=== PATIENT | male | born 1965 | race Caucasian/White ===

== ENCOUNTER 2017-11-12 09:04 | Emergency (ER) | payer OTHER, MEDICARE ==
[2017-11-12] MEDS ORDERED: Sodium Chloride 0.9% 1000 ML 1,000 ML IV SCH (09:15)
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
[2017-11-12 09:49] LABS: INR 1.39 (0.8-3.0)
[2017-11-12 09:51] LABS: BASOPHIL % 0.7 % (0.0-0.4); Basophil (Absolute #) 0.07 (0-0.4); Eosinophil % 2.6 % (0.00-5.0); Eosinophil (Absolute #) 0.24 (0-0.5); Granulocyte Absolute (ANC) 4.34 (1.4-6.9); Granulocytes % 46.5 % (36.0-66.0); Hematocrit 46.2 % (42-50); Hemoglobin 15.8 gm/dl (12.5-18.0); Lymphocyte (Absolute #) 3.72 (1.0-4.6); Lymphocytes % 39.8 % (24.0-44.0); Mean Cell Volume 86.4 fl (78-100); Mean Corpuscular Hemoglobin 29.5 pg (26-32); Mean Corpuscular Hgb Concent. 34.2 g/dl (32-36); Mean Platelet Volume 9.7 fl (6-9.5); Monocyte (Absolute #) 0.97 (0.0-1.3); Monocytes % 10.4 % (0.0-12.0); Platelet Count 257 K/mm3 (150-450); Red Blood Count 5.35 M/mm3 (4.1-5.6); Red Cell Distribution Width 13.8 % (11.5-14.0); White Blood Count 9.3 K/mm3 (4.0-10.5)
[2017-11-12 09:52] LABS: PTT 31.2 SECONDS (24.1-36.1)
[2017-11-12 09:54] LABS: ALBUMIN 4.7 g/dL (3.5-5.0); ALKALINE PHOSPHATASE 95 U/L (38-126); ANION GAP 14.9 MEQ/L (5-15); BLOOD UREA NITROGEN 11 mg/dL (9-20); CHLORIDE 101 mmol/L (98-107); Calcium 9.7 mg/dL (8.4-10.2); Carbon Dioxide 29 mmol/L (22-30); Glucose 70 mg/dL (74-106); Potassium 4.1 mmol/L (3.5-5.1); SGOT/AST 27 U/L (17-59); SGPT/ALT 34 U/L (0-50); SODIUM 141 mmol/L (137-145); Total Protein 7.3 g/dL (6.3-8.2)
[2017-11-12 10:59] VITALS: BP 123/82
[2017-11-12 11:00] VITALS: PULSE 62
[2017-11-12 11:01] VITALS: O2SAT 99
== END 2017-11-12 11:52 | disposition short-term general hospital (02) ==
LOC: ED 09:04
DX: T82.9XXA Unspecified complication of cardiac and vascular prosthetic device, implant and graft, initial encounter (principal); R04.0 Epistaxis; M79.602 Pain in left arm; Z79.01 Long term (current) use of anticoagulants; Z86.711 Personal history of pulmonary embolism
CPT/HCPCS: 36000; 36415; 71045; 80053; 84484; 85025; 85610; 85730; 93005; 93041; 96360; 96361; 99285

== ENCOUNTER 2017-11-25 04:41 | Emergency (ER) | payer OTHER, MEDICARE ==
[2017-11-25] MEDS ORDERED: BABY ASPIRIN 81 MG CHEW PO ONE (04:54)
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
[2017-11-25 05:04] LABS: BASOPHIL % 0.5 % (0.0-0.4); Basophil (Absolute #) 0.06 (0-0.4); Eosinophil % 2.5 % (0.00-5.0); Eosinophil (Absolute #) 0.27 (0-0.5); Granulocyte Absolute (ANC) 6.25 (1.4-6.9); Granulocytes % 57.1 % (36.0-66.0); Hematocrit 46.1 % (42-50); Hemoglobin 16.3 gm/dl (12.5-18.0); Lymphocyte (Absolute #) 3.48 (1.0-4.6); Lymphocytes % 31.8 % (24.0-44.0); Mean Cell Volume 84.7 fl (78-100); Mean Corpuscular Hgb Concent. 35.4 g/dl (32-36); Monocyte (Absolute #) 0.89 (0.0-1.3); Monocytes % 8.1 % (0.0-12.0); Platelet Count 302 K/mm3 (150-450); Red Blood Count 5.44 M/mm3 (4.1-5.6); Red Cell Distribution Width 13.5 % (11.5-14.0)
[2017-11-25] MEDS ORDERED: BABY ASPIRIN 81 MG CHEW ONE (05:08)
[2017-11-25 05:20] LABS: INR 3.36 (0.8-3.0)
[2017-11-25 05:21] LABS: ALBUMIN 4.7 g/dL (3.5-5.0); ALKALINE PHOSPHATASE 109 U/L (38-126); ANION GAP 14.8 MEQ/L (5-15); BLOOD UREA NITROGEN 14 mg/dL (9-20); CHLORIDE 101 mmol/L (98-107); Calcium 9.4 mg/dL (8.4-10.2); Carbon Dioxide 28 mmol/L (22-30); Creatinine 1 0.86 mg/dL (0.66-1.25); Glucose 105 mg/dL (74-106); Potassium 4.2 mmol/L (3.5-5.1); SGOT/AST 20 U/L (17-59); SGPT/ALT 26 U/L (0-50); SODIUM 139 mmol/L (137-145); Total Protein 7.3 g/dL (6.3-8.2)
[2017-11-25 05:22] LABS: PTT 41.7 SECONDS (24.1-36.1)
[2017-11-25 05:26] LABS: D-DIMER QUANTITATION < 215 ng/mL (215-500)
--- NOTE | 2017-11-25 08:55 | XRAY ---
Indication: Chest pain. Comparison: November 12, 2017. Portable chest remains hyperinflated and clear. Heart and mediastinal structures stable and within normal limits again with left-sided dual-lead pacemaker. No new/acute findings. Impression: Stable nonacute chest.
[2017-11-25 09:51] VITALS: BP 115/75; PULSE 71; O2SAT 98
== END 2017-11-25 09:52 | disposition home or self-care (01) ==
LOC: ED 04:41
DX: R07.9 Chest pain, unspecified (principal); Z73.3 Stress, not elsewhere classified; R11.0 Nausea; Z95.0 Presence of cardiac pacemaker; Z79.01 Long term (current) use of anticoagulants; Z79.899 Other long term (current) drug therapy
CPT/HCPCS: 36000; 36415; 71045; 80053; 84484; 85025; 85379; 85610; 85730; 93005; 93041; 99284; A9270-GY

== ENCOUNTER 2017-12-24 20:58 | Emergency (ER) | payer OTHER, MEDICARE ==
[2017-12-24] MEDS ORDERED: Sodium Chloride 0.9% 1000 ML 1,000 ML ONE (21:37)
[2017-12-24] MEDS ORDERED: Sodium Chloride 0.9% 1000 ML 1,000 ML IV STA (21:40)
--- NOTE | 2017-12-24 21:40 | ERPHSYRPT ---
- History of Present Illness Time Seen by Provider: 12/24/17 21:15 Source: patient, police Patient Subjective Stated Complaint: Altered Mental Status Triage Nursing Assessment: Patient brought into ER via [employer] contact officer. Patient reports feeling funny, but unable to explain to nurse how he feels. botanical technical officer stated he was hallucinating and saying everyone was fired. Patient' s behavior not normal for him. Patient Alert to time and place. Patient states he is at ER for pacemaker check. Patient has been having auditory and visual hallucinations. Physician History: 52 y/o white male presents to ED from [facility]. pt states he woke up this morning not feeling right and not feeling good. pt is schizophrenic not on his usual seroquel. pt, after allowing state attorney to put in iv and obtaining blood work, he refuses urinalysis and ct scan of his head. [facility] staff noticed he was talking to himself in his cell. pt denies cp, soa and abd pain. he is not forthcoming with his sx. pt is not homicidal or suicidal Timing/Duration: today Severity of Symptoms-Max: moderate Severity of Symptoms-Current: mild Context related to: other (pt incarcerated for impersonating a police matron.) Associated Symptoms: confused, hallucinating, No angry, No agitated, No anxiety , No ingestion, No injury, No insomnia, No paranoid Previous symptoms: same symptoms as today Allergies/Adverse Reactions: No Known Drug Allergies Allergy (Verified 12/24/17 21:19) Home Medications: Amlodipine Besylate 5 mg [Norvasc 5 mg] 5 mg PO DAILY 11/25/17 [History] Atorvastatin Calcium 40 mg PO DAILY 11/25/17 [History] Levetiracetam [Keppra 500 mg ] 500 mg PO BID 11/25/17 [History] Sertraline HCl 50 mg [Zoloft 50 mg Tablet] 50 mg PO DAILY 11/25/17 [History] Tamsulosin HCl 0.4 mg [Flomax 0.4 MG] 0.4 mg PO BID 11/25/17 [History] Warfarin Sodium 5 mg [Coumadin 5 MG] 7.5 mg PO DAILY 11/25/17 [History] Hx Tetanus, Diphtheria Vaccination/Date Given: Yes Hx Influenza Vaccination/Date Given: No Hx Pneumococcal Vaccination/Date Given: No Immunizations Up to Date: Yes - Past Medical History Pertinent Past Medical History: Yes Neurological History: Seizures Cardiac History: Coronary Artery Disease, Hypertension Respiratory History: COPD, Pulmonary Embolism Endocrine Medical History: Diabetes Type II Musculoskeletal History: No Pertinent History GI Medical History: No Pertinent History History: Renal Disease Psycho-Social History: Depression Other Medical History: schizo affective disorder, tbi, - Past Surgical History Past Surgical History: Yes Cardiac: Cardiac Catheterization, Pacemaker Respiratory: No Pertinent History Gastrointestinal: No Pertinent History Genitourinary: No Pertinent History Musculoskeletal: Orthopedic Surgery Other Surgical History: acf - Social History Smoking Status: Never smoker Exposure to second hand smoke: No Alcohol Use: None Drug Use: none Patient Lives Alone: No ([facility]) Significant Family History: heart disease, diabetes, hypertension - Review of Systems Constitutional: No Symptoms Eyes: No Symptoms Ears, Nose, & Throat: No Symptoms Respiratory: No Symptoms Cardiac: No Symptoms Abdominal/Gastrointestinal: No Symptoms Genitourinary Symptoms: No Symptoms Musculoskeletal: No Symptoms Skin: No Symptoms Neurological: No Symptoms Psychological: No Symptoms Endocrine: No Symptoms Hematologic/Lymphatic: No Symptoms Immunological/Allergic: No Symptoms All Other Systems: Reviewed and Negative - Nursing Vital Signs Nursing Vital Signs: Initial Vital Signs Temperature 98.3 F 12/24/17 21:03 Pulse Rate 72 12/24/17 21:03 Respiratory Rate 18 12/24/17 21:03 Blood Pressure 135/81 12/24/17 21:03 O2 Sat by Pulse Oximetry 100 12/24/17 21:03 Pain Scale Pain Intensity 0 - Physical Exam General Appearance: no apparent distress, alert Eyes, Ears, Nose, Throat Exam: normal ENT inspection, moist mucous membranes Neck Exam: normal inspection, non-tender, supple, full range of motion Respiratory Exam: normal breath sounds, lungs clear, airway intact, No chest tenderness, No respiratory distress Cardiovascular Exam: regular rate/rhythm, normal heart sounds, normal peripheral pulses Gastrointestinal/Abdominal Exam: soft, normal bowel sounds, No tenderness, No guarding, No rebound Extremities Exam: normal inspection, normal range of motion, No evidence of injury Current Suicidality: denies suicide plan Neurological Exam: alert, calm, environmental construction engineer II-XII nml as tested, oriented x 3 Appearance: appropriate appearance Behavior/Eye Contact/Speech: normal speech, avoids eye contact, refused to answer Skin Exam: normal color, warm, dry SpO2 Interpretation: normal SpO2: 100 Oxygen Delivery: Room Air - Course Nursing assessment & vital signs reviewed: Yes EKG Interpreted by Me: RATE (65), Sinus Rhythm, NORMAL AXIS, NORMAL INTERVALS, NORMAL QRS, NORMAL ST-T (no change from ekg dated 11/25/17) Ordered Tests: Active Orders 24 hr Category Date Time Status Shrimp Peeler STAT Care 12/24/17 21:40 Active EKG-ER Only STAT Care 12/24/17 21:40 Active IV Insertion STAT Care 12/24/17 21:40 Active CHEST 1 VIEW (PORTABLE) Stat Exams 12/24/17 22:36 Taken HEAD WITHOUT CONTRAST [CT] Stat Exams 12/24/17 22:13 Taken ACETAMINOPHEN Stat Lab 12/24/17 21:15 Completed CBC W DIFF Stat Lab 12/24/17 21:15 Completed CMP Stat Lab 12/24/17 21:15 Completed ETHYL ALCOHOL Stat Lab 12/24/17 21:15 Completed PT INR [PROTIME WITH INR] Stat Lab 12/24/17 21:15 Completed SALICYLATE Stat Lab 12/24/17 21:15 Completed UA W/RFX UR CULTURE Stat Lab 12/24/17 22:10 Completed Urine Triage Profile Stat Lab 12/24/17 22:10 Received Medication Summary Generic Name Dose Route Start Last Admin Trade Name Freq PRN Reason Stop Dose Admin Sodium Chloride 1,000 mls @ 999 mls/hr 12/24/17 21:40 12/24/17 21:44 Sodium Chloride 0.9% 1000 Ml IV 12/24/17 22:40 999 mls/hr .Q1H1M STA Administration Discontinued Medications Generic Name Dose Route Start Last Admin Trade Name Freq PRN Reason Stop Dose Admin Sodium Chloride Confirm 12/24/17 21:37 Sodium Chloride 0.9% 1000 Ml Administered 12/24/17 21:38 Dose 1,000 mls @ ud .ROUTE .STK-MED ONE Lab/Rad Data: Laboratory Result Diagrams 12/24/17 21:15 12/24/17 21:15 Laboratory Results 12/24/17 12/24/17 12/24/17 Range/Units 22:10 21:15 21:15 WBC (4.0-10.5) K/mm3 RBC (4.1-5.6) M/mm3 Hgb (12.5-18.0) gm/dl Hct (42-50) % MCV (78-100) fl MCH (26-32) pg MCHC (32-36) g/dl RDW (11.5-14.0) % Plt Count (150-450) K/mm3 MPV (6-9.5) fl Gran % (36.0-66.0) % Eos # (Auto) (0-0.5) Absolute Lymphs (auto) (1.0-4.6) Absolute Monos (auto) (0.0-1.3) Lymphocytes % (24.0-44.0) % Monocytes % (0.0-12.0) % Eosinophils % (0.00-5.0) % Basophils % (0.0-0.4) % Absolute Granulocytes (1.4-6.9) Basophils # (0-0.4) PT 16.8 H (8.83-12.87) SECONDS INR 1.44 (0.8-3.0) Sodium 140 (137-145) mmol/L Potassium 4.0 (3.5-5.1) mmol/L Chloride 101 (98-107) mmol/L Carbon Dioxide 28 (22-30) mmol/L Anion Gap 15.7 H (5-15) MEQ/L BUN 20 (9-20) mg/dL Creatinine 0.98 (0.66-1.25) mg/dL Estimated GFR > 60.0 ML/MIN Glucose 163 H (74-106) mg/dL Calcium 9.8 (8.4-10.2) mg/dL Total Bilirubin 0.50 (0.2-1.3) mg/dL AST 21 (17-59) U/L ALT 24 (0-50) U/L Alkaline Phosphatase 95 (38-126) U/L Serum Total Protein 7.4 (6.3-8.2) g/dL Albumin 4.8 (3.5-5.0) g/dL Urine Color YELLOW (YELLOW) Urine Appearance SLIGHTLY CLOUDY (CLEAR) Urine pH 6.0 (5-6) Ur Specific [place] 1.020 (1.005-1.025) Urine Protein NEGATIVE (Negative) Urine Ketones NEGATIVE (NEGATIVE) Urine Blood NEGATIVE (0-5) Janusz/ul Urine Nitrite NEGATIVE (NEGATIVE) Urine Bilirubin NEGATIVE (NEGATIVE) Urine Urobilinogen 2 (0-1) mg/dL Ur Leukocyte Esterase NEGATIVE (NEGATIVE) Urine WBC (Auto) 0-2 (0-5) /HPF Urine RBC (Auto) 3-5 (0-2) /HPF Urine Bacteria (Auto) RARE (NEGATIVE) /HPF Amorphous Crystals FEW (NEGATIVE) /HPF Urine Mucus (Auto) SLIGHT (NEGATIVE) /HPF Urine Culture Reflexed NO (NO) Urine Glucose NEGATIVE (NEGATIVE) mg/dL Salicylates < 1.0 L (2-20) mg/dL Acetaminophen < 10 L (10-30) ug/ml Ethyl Alcohol < 10 (0-10) mg/dL 12/24/17 Range/Units 21:15 WBC 9.6 (4.0-10.5) K/mm3 RBC 5.27 (4.1-5.6) M/mm3 Hgb 16.0 (12.5-18.0) gm/dl Hct 46.3 (42-50) % MCV 87.9 (78-100) fl MCH 30.4 (26-32) pg MCHC 34.6 (32-36) g/dl RDW 13.6 (11.5-14.0) % Plt Count 277 (150-450) K/mm3 MPV 9.3 (6-9.5) fl Gran % 64.0 (36.0-66.0) % Eos # (Auto) 0.07 (0-0.5) Absolute Lymphs (auto) 2.50 (1.0-4.6) Absolute Monos (auto) 0.83 (0.0-1.3) Lymphocytes % 26.0 (24.0-44.0) % Monocytes % 8.6 (0.0-12.0) % Eosinophils % 0.7 (0.00-5.0) % Basophils % 0.7 (0.0-0.4) % Absolute Granulocytes 6.16 (1.4-6.9) Basophils # 0.07 (0-0.4) PT (8.83-12.87) SECONDS INR (0.8-3.0) Sodium (137-145) mmol/L Potassium (3.5-5.1) mmol/L Chloride (98-107) mmol/L Carbon Dioxide (22-30) mmol/L Anion Gap (5-15) MEQ/L BUN (9-20) mg/dL Creatinine (0.66-1.25) mg/dL Estimated GFR ML/MIN Glucose (74-106) mg/dL Calcium (8.4-10.2) mg/dL Total Bilirubin (0.2-1.3) mg/dL AST (17-59) U/L ALT (0-50) U/L Alkaline Phosphatase (38-126) U/L Serum Total Protein (6.3-8.2) g/dL Albumin (3.5-5.0) g/dL Urine Color (YELLOW) Urine Appearance (CLEAR) Urine pH (5-6) Ur Specific [place] (1.005-1.025) Urine Protein (Negative) Urine Ketones (NEGATIVE) Urine Blood (0-5) Janusz/ul Urine Nitrite (NEGATIVE) Urine Bilirubin (NEGATIVE) Urine Urobilinogen (0-1) mg/dL Ur Leukocyte Esterase (NEGATIVE) Urine WBC (Auto) (0-5) /HPF Urine RBC (Auto) (0-2) /HPF Urine Bacteria (Auto) (NEGATIVE) /HPF Amorphous Crystals (NEGATIVE) /HPF Urine Mucus (Auto) (NEGATIVE) /HPF Urine Culture Reflexed (NO) Urine Glucose (NEGATIVE) mg/dL Salicylates (2-20) mg/dL Acetaminophen (10-30) ug/ml Ethyl Alcohol (0-10) mg/dL - Progress Progress: unchanged, re-examined Progress Note: 12/24/17 21:46 after patient stated he was refusing care and wants to be transferred to [place], we contacted at [facility]. pt was informed he could not refuse care. pt then allowed us to continue our work up. Counseled pt/family regarding: lab results, diagnosis, need for follow-up, rad results - Departure Time of Disposition: 22:41 Departure Disposition: Home Clinical Impression: Schizo affective schizophrenia, Confusion, Malingering Condition: Stable Critical Care Time: No Referrals: SALONI ASCENCIO [Primary Care Provider] - Additional Instructions: continue your medications as prescribed. follow up with psychiatrist for further management
[2017-12-24 21:46] LABS: BASOPHIL % 0.7 % (0.0-0.4); Basophil (Absolute #) 0.07 (0-0.4); Eosinophil % 0.7 % (0.00-5.0); Eosinophil (Absolute #) 0.07 (0-0.5); Granulocyte Absolute (ANC) 6.16 (1.4-6.9); Hematocrit 46.3 % (42-50); Mean Cell Volume 87.9 fl (78-100); Mean Corpuscular Hemoglobin 30.4 pg (26-32); Mean Corpuscular Hgb Concent. 34.6 g/dl (32-36); Mean Platelet Volume 9.3 fl (6-9.5); Monocyte (Absolute #) 0.83 (0.0-1.3); Monocytes % 8.6 % (0.0-12.0); Platelet Count 277 K/mm3 (150-450); Red Blood Count 5.27 M/mm3 (4.1-5.6); Red Cell Distribution Width 13.6 % (11.5-14.0); White Blood Count 9.6 K/mm3 (4.0-10.5)
[2017-12-24 21:48] LABS: INR 1.44 (0.8-3.0)
[2017-12-24 21:51] LABS: ALBUMIN 4.8 g/dL (3.5-5.0); ALKALINE PHOSPHATASE 95 U/L (38-126); ANION GAP 15.7 MEQ/L (5-15); BLOOD UREA NITROGEN 20 mg/dL (9-20); CHLORIDE 101 mmol/L (98-107); Calcium 9.8 mg/dL (8.4-10.2); Carbon Dioxide 28 mmol/L (22-30); Creatinine 1 0.98 mg/dL (0.66-1.25); Glucose 163 mg/dL (74-106); SGOT/AST 21 U/L (17-59); SGPT/ALT 24 U/L (0-50); SODIUM 140 mmol/L (137-145); Total Protein 7.4 g/dL (6.3-8.2)
[2017-12-24 21:52] LABS: ACETAMINOPHEN < 10 ug/ml (10-30); ETHYL ALCOHOL < 10 mg/dL (0-10); SALICYLATE < 1.0 mg/dL (2-20)
[2017-12-24 22:28] LABS: Appearance SLIGHTLY CLOUDY (CLEAR); Bilirubin NEGATIVE (NEGATIVE); Blood NEGATIVE Ery/ul (0-5); Glucose NEGATIVE (NEGATIVE); Ketones NEGATIVE (NEGATIVE); Leukocyte Esterase NEGATIVE (NEGATIVE); Nitrite NEGATIVE (NEGATIVE); Protein,Urine Dip NEGATIVE (Negative); Urobilinogen 2 mg/dL (0-1)
[2017-12-24 22:39] LABS: Amphetamine,Urine NEGATIVE (NEGATIVE); Barbiturate,Urine NEGATIVE (NEGATIVE); Benzodiazepine,Urine NEGATIVE (NEGATIVE); Cocaine,Urine NEGATIVE (NEGATIVE); Methadone,Urine NEGATIVE (NEGATIVE); Opiate,Urine NEGATIVE (NEGATIVE); PCP,Urine NEGATIVE (NEGATIVE); THC,Urine NEGATIVE (NEGATIVE)
[2017-12-24 22:53] VITALS: BP 152/95; PULSE 64; O2SAT 99
--- NOTE | 2017-12-25 08:42 | XRAY ---
Indication: Cough. Altered mental status. Comparison: November 25, 2017. Portable chest again demonstrates normal heart and lungs with left-sided dual-lead pacemaker. Bony thorax intact again with lower cervical fusion surgery. No new/acute findings.
--- NOTE | 2017-12-25 08:46 | XRAY ---
Indication: Altered mental status. Multiple contiguous axial images obtained through the head without contrast. Comparison: None Study degraded by motion artifact even with repeat CT. No gross acute intracranial hemorrhage, abnormal extra-axial fluid collection, or mass effect. Fourth ventricle is midline without hydrocephalus. [place]-white matter differentiation is preserved. Bony calvarium grossly intact. Visualized paranasal sinuses demonstrates partially visualized inferior right maxillary sinus polyp/retention cyst. Mastoid air cells are clear. Impression: 1. Motion artifact. 2. No gross acute intracranial abnormalities. 3. Partially visualized right maxillary sinus polyp/retention cyst. Comment: Preliminary interpretation was made by [facility]. No critical discrepancy. CT DI 70.21
== END 2017-12-24 22:58 | disposition home or self-care (01) ==
LOC: ED 20:58
DX: F25.9 Schizoaffective disorder, unspecified (principal); F44.89 Other dissociative and conversion disorders; Z76.5 Malingerer [conscious simulation]
CPT/HCPCS: 36000; 36415; 70450; 71045; 80053; 80307; 81001; 85025; 85610; 93005; 93041; 96360; 99284; G0481; G0480